=== PATIENT | male | born 1975 | race African-American/Black ===

== ENCOUNTER 2017-06-29 14:45 | Emergency (ER) | payer MEDICARE, MEDICAID ==
[~2017-06-29] VITALS: Ht 162.6 cm; Wt 72.0 kg
[2017-06-29] MEDS ORDERED: ASPIRIN 325MG TABLET PO ONE (15:15)
[2017-06-29] MEDS ORDERED: NITROGLYCERIN OINT 1GM/INCH UDPKT TD ONE (15:15)
[2017-06-29 15:46] LABS: CARBON DIOXIDE 30 mEq/L (21-32); CHLORIDE 103 mEq/L (98-107)
[2017-06-29 15:47] LABS: D-DIMER 0.51 mg/L FEU (<0.50); INR 1.1; PROTHROMBIN TIME 11.2 sec (9.4-11.6)
[2017-06-29 15:49] LABS: BASOPHILS % 0.7 % (0.0-2.0); EOSINOPHILS % 1.1 % (0.0-5.0); HEMATOCRIT. 39.2 % (42.0-52.0); HEMOGLOBIN. 13.4 g/dL (14.0-18.0); LYMPHOCYTES % 20.1 % (20.0-50.0); MEAN CORPUSCULAR HEMOGLOBIN 27.8 pg (28.0-32.0); MEAN CORPUSCULAR VOLUME 81.3 fL (80.0-94.0); MONOCYTES % 9.7 % (2.0-8.0); NEUTROPHILS % 68.4 % (40.0-76.0); PLATELET 199 x1000/uL (130-400); RED BLOOD CELL COUNT 4.82 mill/uL (4.7-6.1); RED CELL DISTRIBUTION WIDTH 14.1 % (11.6-14.6)
[2017-06-29 15:54] LABS: TROPONIN I < 0.02 ng/mL (0.00-0.04)
[2017-06-29] MEDS ORDERED: SODIUM CHLORIDE 0.9% 1,000 ML IV ONE (16:07)
[2017-06-29] MEDS ORDERED: POTASSIUM CHLORIDE 20MEQ TABLET SR PO ONE (16:15)
[2017-06-29] MEDS ORDERED: KCL 10MEQ/50ML PREMIX 50 ML IV ONE (16:15)
[2017-06-29 17:15] VITALS: BP 178/136
== END 2017-06-29 17:54 | disposition left against medical advice (07) ==
LOC: ER 15:32 → CANBEDREQ 18:10
DX: R07.9 Chest pain, unspecified (principal); E87.6 Hypokalemia; I10 Essential (primary) hypertension; G82.20 Paraplegia, unspecified; Z88.0 Allergy status to penicillin; Z93.3 Colostomy status
CPT/HCPCS: 36415; 71010; 80053; 83735; 83880; 84484; 85025; 85379; 85610; 93005; 99285; J3480; J7030

== ENCOUNTER 2021-06-28 11:40 | Emergency (ER) | payer MEDICARE, MEDICAID ==
[~2021-06-28] VITALS: Ht 167.6 cm; Wt 86.0 kg
[2021-06-28 11:48] VITALS: BP 168/102
[2021-06-28] MEDS ORDERED: OXYBUTYNIN (11:52)
[2021-06-28] MEDS ORDERED: AMLO5TAB88 PO (11:52)
[2021-06-28] MEDS ORDERED: ONDANSETRON 4MG ODT PO NR (12:06)
[2021-06-28 12:38] LABS: HEMATOCRIT. 35.8 % (42.0-52.0); HEMOGLOBIN. 12.2 g/dL (14.0-18.0); MEAN CORPUSCULAR VOLUME 82.5 fL (80.0-94.0); MEAN PLATELET VOLUME 8.1 fl (7.4-10.4); PLATELET 312 x1000/uL (130-400); RED BLOOD CELL COUNT 4.34 mill/uL (4.7-6.1); RED CELL DISTRIBUTION WIDTH 13.9 % (11.6-14.6)
[2021-06-28 12:47] LABS: CHLORIDE 93 mEq/L (98-107)
[2021-06-28 13:08] LABS: PLATELET ESTIMATE NORMAL
[2021-06-28] MEDS ORDERED: INSULIN REGULAR (HUMULIN R) 300UNITS/3ML VIAL SUBCUT ONE ×2 (13:15→14:15)
[2021-06-28 13:25] LABS: CLARITY URINE CLOUDY (CLEAR); COLOR URINE YELLOW (YELLOW); KETONES URINE 1+ (NEGATIVE); LEUKOCYTE ESTERASE URINE 1+ (NEGATIVE); NITRITE URINE NEGATIVE (NEGATIVE); OCCULT BLOOD URINE 2+ (NEGATIVE); PH URINE 5.5 (4.5-8.0); PROTEIN URINE 1+ (NEGATIVE); UROBILINOGEN URINE 0.2 E.U./dL (0.2-1.0)
[2021-06-28] MEDS ORDERED: CEFTRIAXONE SODIUM 500 MG/VIAL IM ONE (14:15)
[2021-06-28] MEDS: LIDOCAINE HCL 1% 20ML VIAL (Pyxis) INJ INFIL ONE ×2 (14:59→15:17)
[2021-06-28] MEDS ORDERED: LIDOCAINE HCL 1% 30ML VIAL (10MG/ML) INFIL NR (15:15)
[2021-06-28] MEDS ORDERED: INSULIN GLARGINE UD 100 UNITS/ML SYR SUBCUT ONE (16:45)
[2021-06-28] MEDS ORDERED: CEFD300C3 MT (17:22)
[2021-06-28] MEDS ORDERED: METF-414 MT (17:22)
[2021-06-29] MEDS ORDERED: GLIP5TAB12 PO (18:34)
== END 2021-06-28 17:38 | disposition home or self-care (01) ==
LOC: ER 11:40
DX: E11.65 Type 2 diabetes mellitus with hyperglycemia (principal); N39.0 Urinary tract infection, site not specified; I10 Essential (primary) hypertension; Z87.828 Personal history of other (healed) physical injury and trauma; Z79.84 Long term (current) use of oral hypoglycemic drugs; Z93.3 Colostomy status; Z88.0 Allergy status to penicillin
CPT/HCPCS: 36415; 71045; 80053; 81003; 82962; 85025; 87077; 87086; 87186; 93005; 96372; 99285; J0696; J1815; J3490; Q0162

== ENCOUNTER 2021-06-29 15:16 | Emergency (ER) | payer MEDICARE, MEDICAID ==
[~2021-06-29] VITALS: Ht 185.4 cm; Wt 82.0 kg
[~2021-06-29 15:16] MED LIST: AMLO5TAB88 PO; CEFD300C3 MT; METF-414 MT; OXYBUTYNIN
[2021-06-29 15:51] VITALS: BP 154/95
[2021-06-29 17:56] LABS: BASOPHILS % 0.1 % (0.0-2.0); EOSINOPHILS % 1.3 % (0.0-5.0); HEMATOCRIT. 36.9 % (42.0-52.0); HEMOGLOBIN. 12.1 g/dL (14.0-18.0); LYMPHOCYTES % 8.7 % (20.0-50.0); MEAN CORPUSCULAR HEMOGLOBIN 27.2 pg (28.0-32.0); MEAN CORPUSCULAR VOLUME 83.1 fL (80.0-94.0); MEAN PLATELET VOLUME 8.3 fl (7.4-10.4); MONOCYTES % 7.4 % (2.0-8.0); NEUTROPHILS % 82.5 % (40.0-76.0); PLATELET 307 x1000/uL (130-400); RED BLOOD CELL COUNT 4.44 mill/uL (4.7-6.1); RED CELL DISTRIBUTION WIDTH 13.8 % (11.6-14.6)
[2021-06-29 17:59] LABS: CHLORIDE 90 mEq/L (98-107)
[2021-06-29] MEDS ORDERED: GLIP5TAB12 PO (18:34)
== END 2021-06-29 18:53 | disposition home or self-care (01) ==
LOC: ER 15:16
DX: E11.65 Type 2 diabetes mellitus with hyperglycemia (principal); I10 Essential (primary) hypertension; Z93.3 Colostomy status; Z88.0 Allergy status to penicillin
CPT/HCPCS: 36415; 80048; 85025; 99283